=== PATIENT | female | born 1935 | race African-American/Black ===

== ENCOUNTER 2018-12-11 11:39 | Inpatient (IN) | payer OTHER, BC ==
[~2018-12-11] VITALS: Ht 165.1 cm; Wt 54.4 kg
[2018-12-11 18:55] VITALS: BP 135/81
--- NOTE | 2018-12-12 04:48 | NUR ---
patient admitted for sacrum wound. patient has a wound in the sacrum, left and right hip. sacrum wound has escar, a lot of drainage and s/s of infection noted. right hip has an old blister and open dry wound on left hip.pictures taken on wound and are in the chart. patient denied pain or discomfort.patient turned q 2 hours. patient encouraged fluids.patient has been npo since midnight. patient in bed asleep at this time breathing regular and unlaboured.
[2018-12-12 05:46] LABS: ABSOLUTE NEUTROPHILS 6.6 thou/uL (1.4-8.2); BASOPHILS 0.3 % (0.0-2.0); EOSINOPHILS 1.5 % (0.0-3.0); HEMATOCRIT 23.7 % (37.0-47.0); HEMOGLOBIN 7.5 gm/dL (12.0-15.0); LYMPHOCYTES 11.7 % (24.0-44.0); MCHC 31.6 g/dL (28.0-37.0); MONOCYTES 5.3 % (1.0-8.0); PLATELET COUNT 304 thou/uL (150-400); POLYS 81.2 % (36.0-66.0); RBC 3.01 mil/uL (4.20-5.00); RDW 19.9 % (10.5-14.5); WBC 8.2 thou/uL (4.0-11.0)
[2018-12-12 06:10] LABS: ALBUMIN 1.7 g/dL (3.4-5.0); CALCIUM 8.3 mg/dL (8.5-10.1); CREATININE 0.6 mg/dL (0.6-1.0); POTASSIUM 3.3 mmol/L (3.5-5.1); TOTAL BILIRUBIN 0.6 mg/dL (<0.1-1.0); TOTAL PROTEIN 5.9 g/dL (6.4-8.2)
[2018-12-12 06:56] VITALS: BP 120/52
--- NOTE | 2018-12-12 15:40 | NUR ---
PT ADMITTED RELATED TO SACRAL WOUNDS. CM REVIEWED CHART AND SPOKE WITH CARE TEAM. CM MET WITH PT, SPOUSE, AND DTR AT BEDSIDE THIS DAY. PT WAS NOT ALERT AND DIDN'T PARTICIPATE IN ASSESSMENT. SPOUSE AND DTR ANSWERED QUESTIONS. THEY INDICATED THAT PT HAD BEEN AT HOME WITH SPOUSE WITH 3 STEPS TO ENTER AND NO STEPS SHE USES INSIDE. FAMILY INDICATED THAT PT HAD NOT BEEN AMBULATING FOR ABOUT A MONTH PRIOR TO ADMISSION BUT THAT FAMILY HAD ASSISTED WITH TRANSFERS FROM SURFACE TO SURFACE. THEY INDICATED THAT PT HAS A FWW AND A TRANSPORT CHAIR. THEY INDICATED THAT PT HAD NOV [employer] AND PRIVATE DUTY SERVICES [facility]ROUGH [facility] 4HRS PER DAY TUESDAY AND TUESDAY. DTR INDICATED THAT THEY WANTED SKILLED REHAB FOR WOUND CARE AT [facility] IND[facility] PT WAS HOSPICE APPROPRIATE AWAITING CARE TEAM TO DISCUSS GOALS OF CARE TO PROCEDE.
[2018-12-12 17:37] VITALS: BP 116/57
[2018-12-12 19:16] VITALS: BP 116/67
--- NOTE | 2018-12-12 19:54 | NUR ---
Assumed pt care this am, pt is bed bound with sacral and hip wounds, sacral being the worse with foul odor, alot of drainage. Wound dresing chage almost every q2 turns, pt is incontinent of both bowel and bladder. Pt denies pain and is mostly lethargic, SCD's bilateral are on. REceived NPO since midnight, speech, PT and OT consulted abnd seen pt. Dr. Smith (surgery) does not recommend surgery at this point, though Dr. Goncalves thinks otherwise. Family is at the bedside and is very confused from the different plans said by different doctors and was wanting to talk to the hospitalist, message was sent MD called back and stated "no surgery" and hung up, no visit from the MD / hospitalist was done. Seen by Dr. Maldonado, other orders and consult for Dr. Galarza put in. PLaced on isolation as a precaution for MRSA until wound cultures return. Blood sugars dropped to below 70 d10 given monitoring done through out the day. POC followed, no signs or verbalizations of distress have been noted. Wound care orders put in, endorsed to the night nurse.
--- NOTE | 2018-12-13 04:19 | NUR ---
RECEIVED PT IN BED WITH FAMILY PRESENT AT BEDSDIE. NON-VERBAL. OPENDS EYES SPONTANEIOULY. VSS. WOUND CARE COMPLETED. NO S/S ACUTE DISTRESS NOTED OR REPORTED AT THIS TIME. WILL CONT TO MONITOR FOR ANY CHANGES IN CONDITION.
[2018-12-13 05:01] LABS: HEMOGLOBIN 7.5 gm/dL (12.0-15.0); MCH 24.4 pg (26.0-34.0); MCV 78.8 fL (80.0-100.0); RBC 3.05 mil/uL (4.20-5.00); RDW 19.4 % (10.5-14.5); WBC 7.3 thou/uL (4.0-11.0)
[2018-12-13 05:12] LABS: CALCIUM 8.1 mg/dL (8.5-10.1); CREATININE 0.6 mg/dL (0.6-1.0); MAGNESIUM 1.8 mg/dL (1.8-2.4); PHOSPHORUS 2.4 mg/dL (2.5-4.9); POTASSIUM 3.5 mmol/L (3.5-5.1)
[2018-12-13 06:07] VITALS: BP 139/73
[2018-12-13 07:32] VITALS: BP 124/64
--- NOTE | 2018-12-13 10:51 | NUR ---
PT DROWSY, EASY TO AWAKE. PATIENT TURNED Q2 HOURS, VSS, NO SIGNS OF DISTESS. WILL CONTINUE TO MONITOR.
--- NOTE | 2018-12-13 13:30 | NUR ---
THIS CUSTOMER SUPPORT ANALYST WAS NOTIFIED THE FAMILY IS IN A DIFFICULT POSITION. THIS CUSTOMER SUPPORT ANALYST MET THE PATIENT AND THE DAUGHTER. PATIENT WAS NOT COMMUNICATING VERBALLY WHILE I WAS PRESENT. THE FAMILY HAS BEEN WRESTLING WITH THE DECLINE OF PATIENT WELL HER WOUND. THE DAUGHTER WAS WARM AND WELCOMING. WE DID LIFE REVIEW REGARDING HER MOTHER. 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 WE DISCUSSED OPTIONS THEY HAVE BEEN CONSIDERING. WE DISCUSSED PLACEMENT AND A LONGER TERM PROGNOSIS. WE DISCUSSED EXP[ECTATIONS OF A SNF. THE DAUGHTER SEEMS VERY COMPETENT AND HAS BEEN PROVIDED GOOD INFORMAITN. SHE HAS ATTEMPTED TO PLAN AHEARD. THE OF THE PATIENT IS STILL SOMEWHAT ACTIVE BUT THE OLDEST DAUGHER, WHOM I MET, SEEMS TO HAVE GOTTEN SOME GOOD DIRECTOR OF EDUCATION AND TRAINING. SHE HAS PLANNED AHEAD AND MADE MANY ARRANGEMENTS FOR HER MOTHER'S DECLINING STATE OF HEALTH WE SPOKE OUT IN THE HALLWAY. SHE, LIKE MOST PEOPLE, IS STRUGHLING WITH SEEING HER PLANS COME TO FRUITION AND TO WITNESS HER MOTHER'S WOUND AND DECLINE IN HEALTH. THE FAMILY HAS A STRONG LUZ MARIA BACKGROUND TO HELP COPE. WE CONCLUDED IN PRAYER. , HHE FATHER IS STILL SOMEWHAT
[2018-12-13 15:20] VITALS: BP 121/66
--- NOTE | 2018-12-13 15:57 | NUR ---
CARE TEAM INDICATED THAT FAMILY ELECTED TO NO PERSUE ANY SURGICAL INTERVENTION AND THAT THEY ARE INTERESTED IN LOOKING INTO HOSPICE HOUSE EVALUATION. CM MET WITH PT, DTR, AND SPOUSE AT BEDSIDE AND EXPLAINED ASSESSMENT PROSESS AND OPTIONS SHOULD PT NO MEET FOR HOUSE ADMISSION OF LTC WITH HOSPICE OR HOME WITH HOSPICE. NURSE MARTIN WILL BE OUT TOMORROW AT 10:00. ALL AWARE CM NOTIFIED PHYSICIAN. CM TO FOLLOW INDICATED WITH DC PLANNING.
[2018-12-13 19:25] VITALS: BP 142/67
--- NOTE | 2018-12-14 07:33 | NUR ---
ASSUMED CARE AROUND 1914. PT NOW DNR PER . FAMILY AGREEABLE AT BEDSIDE FOR DNR [place]. WOUND CARE RENDERED AND TOLERATED WELL. NO S/S ACUTE DISTRESS NOTED OR REPORTED AT THIS TIME. CARE TRANSFERRED TO DAY RN AT THIS TIME.
[2018-12-14] MEDS ORDERED: MSL20MG/ML PO (09:07)
--- NOTE | 2018-12-14 09:53 | NUR ---
Nutrition update: Per chart review, pt is now DNR and per EMR family is no longer pursuing any aggressive interventions or surgeries. Pursuing Hospice option. 10:00 am meeting planned for Hospice House eval. Note discharge orders in as well. Given change in goals/plan of care, no further RD recommendations at this time, remain on least restrictive, liberalized diet.
--- NOTE | 2018-12-14 14:04 | NUR ---
DISCHARGE PLANNING. PATIENT REFERRAL FAXED TO [facility], [facility], [facility], AND [facility]. PATIENT MAY BE SKILLED DUE TO WOUNDS, TRANSITIONING INTO CONSULTING SYSTEMS ENGINEER CARE WITH HOSPICE SERVICES. DAUGHTER SUPPORTIVE AND AGREEABLE. DAUGHTER TO REACH OUT TO ALL FOUR FACILITIES TO DISCUSS MOTHERS DISCHARGE NEEDS AND DISCHARGE PLAN. CALL PLACED TO ALL FOUR FACILITY ADMISSION COORDINATORS TO NOTIFY OF REFERRALS AND THAT DAUGHTER WILL BE IN CONTACT WITH THEM AND PLANNING ON TOURING FACILITIES. AWAITING RESPONSE. UNIT SW AWARE. FOLLOWING TO ASSIST.
[2018-12-14 15:50] VITALS: BP 115/54
--- NOTE | 2018-12-14 16:10 | NUR ---
VERONICA NURSE WITH HOSPICE EVALUATED PT THIS AM AND INDICATED THAT PT DIDN'T MEET CRITERIA FOR HOSPICE HOUSE ADMISSION. CM FOLLOWED UP WITH PT, SPOUSE, AND DTR AND DISCUSSED HOME WITH HOSPICE OR FACILITY WITH HOSPICE. THEY WERE GIVEN A LIST AND ASKED THAT REFERRALS BE SENT TO [facility], [facility], AND [facility]. CM TO FOLLOW INDICATED WITH DC PLANNING.
[2018-12-14 19:55] VITALS: BP 105/51
--- NOTE | 2018-12-15 03:33 | NUR ---
ASSUMED CARE OF PT AT 1900HRS. PT IS DISORIENTED X4 AND NON-VERBAL. FALL PRECAUTION IN PLACE. FAMILY IS AT BEDSIDE. FAMILY ASSISTED PT WITH DINNER. PT WAS TURNED Q2-3 HRS. DRESSING CHANGED PER ORDER. PT SLEPT MOST OF THE SHIFT. SO S/S OF ACUTE DISTRESS WILL CONTINUE TO MONITOR. DPOA MENTIONED THAT FAMILY IS INTERESTED IN [facility] CHOICE FOR DC. [facility] IS #2 CHOICE OF THE FAMILY FOR DC.
[2018-12-15 08:33] VITALS: BP 100/50
--- NOTE | 2018-12-15 16:37 | NUR ---
PT WAS ACCEPTED TO HOSPICE HOUSE THIS DAY. REPORT WAS CALLED. CM FAXED ORDERS. [facility] TRANSPORT ARRANGED FOR 1630. PT'S FAMILY AWARE AND AGREEABLE. NO OTHER CM INTERVENTION INDICATED. CASE CLOSED.
--- NOTE | 2018-12-15 18:19 | NUR ---
Assumed pt care this am, pt had declined from previous days, pt refused to eat or drink even when offered the sponge with water. Family at the bedside, daughter has the same observations, frequent hydation was promoted. Pt is lethargic, non- verbal, arms and hard contracted. Wound dressing care done 3 x today, pt is incontinent and pericare given each time. Turned every 2 hours. POC followed, no signs of distress have been noted. IV removed, pt is dc to hospice house, IV removed, was picked up past 5 pm,family was with the pt. PT v s was stable.
--- NOTE | 2018-12-18 20:42 | HC ---
[facility] [place] [address] [place] [address] CONSULTATION Name: JOHANN GORMAN Room #: 463-P [facility] IN M.R.#: [id number] Admission: 12/11/18 Attend Phys: Holly Noriega MD Discharge: 12/15/18 Date of : 35 Report #: [id number] THIS REPORT FOR: //name// CC: José Manuel Noriega PALLIATIVE CARE CONSULTATION REQUESTING PHYSICIAN: Dr. Tucker. CHIEF COMPLAINT: Multiple wounds, dementia. HISTORY OF PRESENT ILLNESS: The patient is an 83-year-old female who presented on 12/12/2018 to wound care clinic and was subsequently admitted secondary to a large sacral wound with extensive slough. Additionally, she has bilateral hip wounds. She has had an overall functional decline over the last year and more recently she had had a decline in her p.o. intake and nutritional status, resulting in the development of wound. She apparently had a surgery for a liver cyst. This was approximately one month and a half ago and then subsequently had developed these conditions after this, although she has a longstanding history of Alzheimer's dementia. Family is aware of this and that it will continue to progress. I met with the spouse and 2 daughters today for discussion of this as the patient is not felt to be a good surgical candidate for any kind of debridement, colostomy placement either. At this point in time, family is wishing to discuss all available options. PAST MEDICAL HISTORY: Significant for Alzheimer's dementia, recent liver cyst, status post resection, history of decubitus ulcer, dysphagia and protein-calorie malnutrition. ALLERGIES: No known drug allergies. MEDICATIONS: Currently with Humalog sliding scale, vancomycin, Protonix, Zofran. FAMILY HISTORY: Noncontributory. SOCIAL HISTORY: is a decision maker at this time. Two daughters are also present. The patient was living at home with home health care. CODE STATUS: Discussed with family. They reported that they wished to change to a DNR code status at this time. PAST SURGICAL HISTORY: Recent liver cyst removal. REVIEW OF SYSTEMS: Unable to obtain from the patient due to her significant [facility] [address] [place] [address] CONSULTATION Name: JOHANN GORMAN Room #: 463-P [facility] IN M.R.#: [id number] Admission: 12/11/18 Attend Phys: Holly Noriega MD Discharge: 12/15/18 Date of : 35 Report #: [id number] dementia at this time, although she occasionally, reports she is not in pain. PHYSICAL EXAMINATION: VITAL SIGNS: Include temperature 37.8, pulse 97, respirations 16, blood pressure 142/67, 92% on room air. GENERAL: The patient is not significantly alert or oriented x 3, difficult to assess orientation overall. HEENT: No scleral icterus. No conjunctival injection. Normocephalic and atraumatic. CARDIOVASCULAR: Appears to be regular rate and rhythm currently. LUNGS: No respiratory distress, no accessory muscle use. ABDOMEN: No significant distention noted. INTEGUMENTARY: Significantly large sacral wound noted as well as left hip wound. I was unable to examine right hip wound area today. LABORATORY DATA: Include hemoglobin 7.5, platelets 304. White blood cell 7.3, creatinine 0.6, mag 1.8. ASSESSMENT AND PLAN: 1. Extensive wounds including a sacral ulcer, which is currently end-stage. We will discuss extensively in the context of current plans, also with her recent decline in p.o. status, also in the context of possibly needing enteral nutrition, which they are not interested at this time. Discussed also advanced directive today and again they stated they wanted the patient to be do not resuscitate including no CPR, no ventilation given her current status. Given the difficulty with possible surgical outcomes and also with her overall decline, they did not want to pursue surgical intervention at this time to include colostomy or debridement. I did discuss this extensively with them today. I spent approximately 50 minutes on discussion of advanced care planning with family today. Additionally, I discussed with case management and informed to wound care team of this. 2. Alzheimer's dementia, appears to be severe type with progressive nutritional loss. Again, this is overall likely to worsen her care and overall likely to worsen her wound. Discussed hospice care as a possibility. They wished to have consultation from hospice house initially to see if this is a possibility to qualify for their concern about the affordability of long-term care with hospice. I did discuss this with case management today. Thank you very much for this consultation. Please contact me for any further questions regarding this patient. <ELECTRONICALLY SIGNED> By: Erik Galarza DO 12/18/182041 01 0455 Erik Galarza DO /nt
--- NOTE | 2018-12-19 17:26 | HC ---
[facility] [place] [address] CONSULTATION Name: JOHANN GORMAN Room #: 463-P [facility] IN M.R.#: [id number] Admission: 12/11/18 Attend Phys: Holly Noriega MD Discharge: 12/15/18 Date of : 35 Report #: [id number] THIS REPORT FOR: //name// CC: José Manuel Noriega DATE OF SERVICE: 12/12/2018 REASON FOR CONSULTATION: Decubitus ulcers. ASSESSMENT: 1. Sacral decubitus ulcer, unstageable. 2. Bilateral ischial tuberosity pressure ulcers, unstageable. 3. Advanced Alzheimer dementia. 4. Cachexia. 5. Severe malnutrition. 6. Recent liver abscess, status post surgery with Dr. Clif Verma. 7. Dysphagia. 8. Bedbound. RECOMMENDATIONS: 1. Thank you for your consultation. I will follow along. 2. Recommend consultation with the hospice service. 3. Following consultation with hospice service, I am happy to debride the wounds if the family so chooses. If they do elect for hospice care, I can debride the wounds in order to assist with the foul smelling odor. 3. If the patient's family does not want hospice care, we can have a repeat discussion regarding ulcer debridement and colostomy with feeding tube placement. I would consider this very aggressive measure given the patient's overall condition and unlikeliness for a meaningful quality of life recovery. HISTORY OF PRESENT ILLNESS: The patient is an 83-year-old female accompanied by her daughter in the hospital. The patient has been admitted for severe pressure wounds that were identified in the wound clinic yesterday. She was directly admitted as these were foul smelling and she was found to be septic from these. The patient was recently hospitalized for liver surgery where she had an abscess. The etiology of this abscess is currently unknown to the family or myself. The patient has been in the hospital system since the procedure for her liver abscess. Unfortunately, while recovering, she has developed severe pressure wounds and that is why she is admitted today. PAST MEDICAL HISTORY: Unobtainable from the patient, but per the chart: 1. Alzheimer dementia. 2. Severe protein-calorie malnutrition. 3. Cachexia. [address] [address] CONSULTATION Name: JOHANN GORMAN Room #: 463-P [facility] IN M.R.#: [id number] Admission: 12/11/18 Attend Phys: Holly Noriega MD Discharge: 12/15/18 Date of : 35 Report #: [id number] 4. Recent liver abscess. 5. History of recent rib fracture. 6. Dysphagia. 7. Bedbound. PAST SURGICAL HISTORY: Unobtainable from the patient, but per the chart: Recent liver abscess cyst debridement. SOCIAL HISTORY: Unobtainable. FAMILY HISTORY: Unobtainable. REVIEW OF SYSTEMS: Unobtainable. PHYSICAL EXAMINATION: VITAL SIGNS: Temperature 36.6, pulse 86, respiratory rate 14, blood pressure 116/57, and pulse ox 92%. GENERAL: The patient is alert. She is not able to answer orientation questions. She has a blank gaze and does not seem to acknowledge my presence. She is in no apparent distress. HEENT: PERRLA, EOMI, MMM, NCAT NECK: Supple. No LAD CARDIOVASCULAR: Regular rhythm and rate. Hemodynamically stable. Normal capillary refill. Regular rhythm and rate. Hemodynamically stable. Normal capillary refill. PULMONARY: Nonlabored. Clear to auscultation bilaterally ABDOMEN: Soft, nontender to palpation, no guarding, no rigidity, no rebound tenderness, no hernias. EXTREMITIES: Calves soft, nontender, no edema. INTEGUMENTARY: The patient has a very large likely 20 x 20 cm sacral wound that is necrotic, foul smelling, and has purulent material draining from it. The wound is currently unstageable, and has a black eschar overlying most of it. The patient also has a right pressure wound overlying the ischial tuberosity, unstageable. The patient also has a left pressure wound overlying the ischial tuberosity, unstageable. Both ischial tuberosity wounds are dry with no expressible purulence. MUSCULOSKELETAL: Strength not testable. The patient is extremely cachectic and will follow commands. PSYCH: Not assessable. NEUROLOGIC: The patient will not follow commands. LYMPHATICS: No cervical, inguinal, or supraclavicular lymphadenopathy. LABORATORY DATA: White blood count 8.2, hemoglobin 7.5, hematocrit 23.7, [address] [address] CONSULTATION Name: JOHANN GORMAN Room #: 463-P [facility] IN M.R.#: [id number] Admission: 12/11/18 Attend Phys: Holly Noriega MD Discharge: 12/15/18 Date of : 35 Report #: [id number] platelets 304. Sodium 143, potassium 3.3, creatinine 0.6, magnesium 2, total bilirubin 0.6, alkaline phosphatase 57, albumin 1.7. <ELECTRONICALLY SIGNED> By: João Smith MD 12/19/18 1726 [id number] João Smith MD /nt
--- NOTE | 2018-12-24 11:57 | HC ---
[facility] [place] [place] [address] CONSULTATION Name: JOHANN GORMAN Room #: 463-P [facility] IN M.R.#: [id number] Admission: 12/11/18 Attend Phys: Holly Noriega MD Discharge: 12/15/18 Date of : 35 Report #: [id number] THIS REPORT FOR: //name// CC: José Manuel Noriega DATE OF SERVICE: 12/12/2018 HISTORY OF PRESENT ILLNESS: The patient is an 83-year-old female patient, admitted to the hospital with multiple pressure ulcerations. She is noted to be cachectic with advanced Alzheimer's dementia, and I saw her in the Wound Clinic yesterday and felt that hospitalization would be required. At that time, we discussed with the patient's family the need for either aggressive care including surgical debridement and a feeding tube placement and possible diverting colostomy versus possible comfort care or hospice-type care. At that time, they were unable to make a clear determination as to which direction they wished to go. The patient is not able to provide any information about herself. PAST MEDICAL HISTORY: Positive for multiple pressure ulcerations. She has severe dementia. She has had a recent liver cyst or abscess drained surgically at [facility] and significant dysphagia and has not been able to eat or drink very much. SOCIAL HISTORY: Negative for alcohol or tobacco use. FAMILY HISTORY: Unknown. REVIEW OF SYSTEMS: Unobtainable due to the patient's condition. MEDICATIONS: Currently unknown. ALLERGIES: None. PHYSICAL EXAMINATION: VITAL SIGNS: At this time include temperature of 37.3, pulse 86, respiratory rate of 18, blood pressure 100/50. GENERAL: This is a chronically ill, cachectic-appearing female patient who is mostly somnolent. HEENT: Head normocephalic. NECK: Supple. LUNGS: Diminished. HEART: Tachycardic without murmur. ABDOMEN: Soft, nontender. SKIN: The pelvic region demonstrates very large, essentially massive, unstageable pressure ulcerations to both hips as well as the sacral region. [facility] [address] [place] [address] CONSULTATION Name: JOHANN GORMAN Room #: 463-P [facility] IN M.R.#: [id number] Admission: 12/11/18 Attend Phys: Holly Noriega MD Discharge: 12/15/18 Date of : 35 Report #: [id number] There is some odor and drainage as well. The area is covered with wet eschar. It is more of a deep tissue injury evolving into eschar involving the right hip; the left hip has intact eschar at this time. EXTREMITIES: Contracted. NEUROLOGIC: The patient is somnolent, does appear to have some symmetry with spontaneous movements. LABORATORY DATA: Sodium 143, potassium 3.3, chloride 107, CO2 of 27, BUN 10, creatinine 0.6, glucose 72. Albumin is 1.7. White blood cell count is 8.2 with hemoglobin of 7.5. CLINICAL IMPRESSION: 1. Unstageable pressure ulcerations to the left greater trochanter, a deep tissue injury to the right greater trochanter and a very large unstageable pressure ulcer of the sacrum. 2. Severe protein-calorie malnutrition. 3. Advanced debility. 4. Advanced dementia. RECOMMENDATIONS: At this point in time, I have discussed with the family at length the choice between either aggressive care or hospice or palliative-type care. We will consult Dr. Galarza to address concerns and expectations with regard to possible hospice transition. We will also ask Dr. Smith to see her from a surgical perspective to discuss the possibility of debridement, colostomy and/or feeding tube. We will recommend a Dakin's moist gauze dressing in the meantime; she will need a low air loss mattress, q. 2 hour turning and positioning, nutrition as able and continuation of current medications. I appreciate being asked to see her in consultation. <ELECTRONICALLY SIGNED> By: Agus Tucker MD 12/24/18 1157 [id number] Agus Tucker MD /nt
== END 2018-12-15 18:35 | disposition hospice, inpatient (51) | DRG 570 ==
LOC: HYPER 11:39 → 4W 16:37
PROVIDERS: Nurse Practitioner; ADMIT Internal Medicine
PROC: 0JB70ZZ Excision of Back Subcutaneous Tissue and Fascia, Open Approach (ICD-10-PCS; principal; 2018-12-14)
DX: L89.154 Pressure ulcer of sacral region, stage 4 (principal); E43 Unspecified severe protein-calorie malnutrition; E87.6 Hypokalemia; G30.9 Alzheimer's disease, unspecified; F02.80 Dementia in other diseases classified elsewhere, unspecified severity, without behavioral disturbance, psychotic disturbance, mood disturbance, and anxiety; R13.10 Dysphagia, unspecified; Z74.01 Bed confinement status; L89.890 Pressure ulcer of other site, unstageable; D64.9 Anemia, unspecified; R16.2 Hepatomegaly with splenomegaly, not elsewhere classified; L89.220 Pressure ulcer of left hip, unstageable; L89.210 Pressure ulcer of right hip, unstageable; Z51.5 Encounter for palliative care; Z66 Do not resuscitate; Z68.20 Body mass index [BMI] 20.0-20.9, adult
CPT/HCPCS: 10047